=== PATIENT | female | born 1980 | race Native Hawaiian/Other Pacific Islander ===

== ENCOUNTER 2019-04-14 18:07 | Emergency (ER) | payer OTHER, MEDICAID, SELFPAY ==
[2019-04-14 18:14] VITALS: BP 136/80; PULSE 97; RESP 17; TEMP 36.8; O2SAT 98; BMI 31.0
[2019-04-14 18:57] LABS: Influenza A - CEPHEID Flu A NEGATIVE (NEGATIVE); Influenza B - CEPHEID Flu B NEGATIVE (NEGATIVE)
--- NOTE | 2019-04-14 19:36 | ED_ITS ---
HPI - URI/Sore Throat <AKBAR Goode - Last Filed: 04/14/19 19:45> General Chief Complaint: Upper Respiratory Symptoms Stated Complaint: thinks has ear infection Time Seen by Provider: 04/14/19 18:58 Source: patient and family Mode of arrival: Ambulatory Limitations: no limitations History of Present Illness HPI Narrative: The patient is a 39-year-old female nonsmoker denies pertinent medical history presents with a chief complaint ?I think I have an ear infection. She states that she has had a sore throat, slight cough, ear pressure for the past 2 days, worse yesterday. Denies any fevers nausea vomiting or diarrhea. Related Data Previous Rx's Medication Instructions Recorded amoxicillin 875 mg PO BID #20 tab 04/14/19 Allergies Allergy/AdvReac Type Severity Reaction Status Date / Time No Known Drug Allergies Allergy Verified 04/14/19 18:13 Review of Systems <AKBAR Goode - Last Filed: 04/14/19 19:45> Review of Systems Narrative: GENERAL: Denies chills, fatigue, malaise, fever, sweats. HEENT: See HPI RESPIRATORY: Denies dyspnea, cough, wheezing, hemoptysis, sputum. CARDIOVASCULAR: Denies chest pain, palpitations, orthopnea, edema, GASTROINTESTINAL: Denies nausea, vomiting, abdominal pain, diarrhea, constipation, melena. : Denies dysuria, frequency, incontinence, hematuria, urinary retention. MUSCULOSKELETAL: denies weakness, joint pain, or bony pain SKIN: Denies rash, skin lesions, or other NEUROLOGIC: Denies weakness, headache, numbness, change in speech, confusion, seizures, incoordination. PSYCHIATRIC: No concerning psychosocial issues. 12 point review of systems is negative except for those stated above Exam <AKBAR Goode - Last Filed: 04/14/19 19:45> Narrative Exam Narrative: GENERAL: This is a well-nourished, well-developed patient, in no acute distress HEAD: Atraumatic. Normocephalic. No temporal or scalp tenderness. EYES: Pupils equal round and reactive. Extraocular motions intact. No scleral icterus. No injection or drainage. ENT: Nose without bleeding, purulent drainage or septal hematoma. Throat without erythema, tonsillar hypertrophy or exudate. Uvula midline. Airway patent. Bilateral TMs pearly roche NECK: Trachea midline. No JVD or lymphadenopathy. Supple, nontender, no meningeal signs. CARDIOVASCULAR: Regular rate and rhythm without murmurs, gallops, or rubs. RESPIRATORY: Clear to auscultation. Breath sounds equal bilaterally. No wheezes, rales, or rhonchi. No cough. No increased respiratory effort. No accessory muscle use. GASTROINTESTINAL: Abdomen soft, non-tender, nondistended. No hepato- splenomegaly, or palpable masses. No guarding. EXTREMITIES: No clubbing, cyanosis, or edema. No joint tenderness, effusion, or edema noted. BACK: Nontender without deformity or crepitance. No flank tenderness. NEURO: AOx3. SKIN: No rash or erythema. Initial Vital Signs Initial Vital Signs: Vital Signs Temperature 98.3 F 04/14/19 18:14 Pulse Rate 97 H 04/14/19 18:14 Respiratory Rate 17 04/14/19 18:14 Blood Pressure 136/80 04/14/19 18:14 Pulse Oximetry 98 04/14/19 18:14 <DO Abel Zaldivar Last Filed: 04/14/19 20:40> Initial Vital Signs Initial Vital Signs: Vital Signs Temperature 98.3 F 04/14/19 18:14 Pulse Rate 97 H 04/14/19 18:14 Respiratory Rate 17 04/14/19 18:14 Blood Pressure 136/80 04/14/19 18:14 Pulse Oximetry 98 04/14/19 18:14 Course <AKBAR GoodeBC - Last Filed: 04/14/19 19:45> Orders Ordered: ED Orders 04/14/19 18:20 Influenza A & B (PCR) Stat Vital Signs Vital signs: Vital Signs - 8 hr 04/14/19 18:14 Temperature 98.3 F Pulse Rate 97 H Respiratory Rate 17 Blood Pressure 136/80 Pulse Oximetry 98 <DO Abel Zaldivar Last Filed: 04/14/19 20:40> Orders Ordered: ED Orders 04/14/19 18:20 Influenza A & B (PCR) Stat Vital Signs Vital signs: Vital Signs - 8 hr 04/14/19 18:14 Temperature 98.3 F Pulse Rate 97 H Respiratory Rate 17 Blood Pressure 136/80 Pulse Oximetry 98 MDM - URI/Sore Throat <AKBAR GoodeBC - Last Filed: 04/14/19 19:45> Lab Data Labs: Lab Results 04/14/19 Range/Units 18:20 Influenza A (RT-PCR) Flu a negative (NEGATIVE) Influenza B (RT-PCR) Flu b negative (NEGATIVE) Point of Care Testing Rapid Strep A Positive MDM Narrative Medical decision making narrative: The patient is a 39 year female who presents with a chief complaint of sore throat ear pressure and general malaise. She is hemodynamically stable, afebrile and in no acute distress. She tests negative for influenza, positive for strep. Antibiotic therapy initiated with amoxicillin. Discussed at length follow up with primary care provider, coming back to the emergency department for any acute concerns. Patient has no questions or concerns upon discharge and states understanding of return precautions as well as follow-up care. <Michael Cortez DO - Last Filed: 04/14/19 20:40> Lab Data Labs: Lab Results 04/14/19 Range/Units 18:20 Influenza A (RT-PCR) Flu a negative (NEGATIVE) Influenza B (RT-PCR) Flu b negative (NEGATIVE) Point of Care Testing Rapid Strep A Positive Discharge Plan Departure Patient Disposition: Home Clinical Impression: Strep throat Discharge Date/Time: 04/14/19 19:32 Instructions: DI for Strep Throat Activity Restrictions/Additional Instructions: Today you tested positive for strep throat. I sent a prescription of amoxicillin to [facility] in [place] Please continue [id number] measures as needed and able Please follow-up with primary care provider in the next few days Please come back to emergency department for any acute concerns such as inability to keep down fluids Prescriptions: New amoxicillin 875 mg tablet 875 mg PO BID Qty: 20 RF: 0 Stand Alone Forms: Work Release Note <Michael Cortez DO - Last Filed: 04/14/19 20:40> Sign Out Provider Sign Out Attestation: Dr Cortez Co-Sign Statement: I was available for consultation during this patient's emergency department visit. This chart is signed by myself for administrative purposes only. I did not have direct contact with this patient during this visit. They were seen independently by the APC.
== END 2019-04-14 19:32 | disposition home or self-care (01) ==
PROVIDERS: Emergency Medicine; Emergency Provider Nurse Practitioner Family
DX: J02.0 Streptococcal pharyngitis (principal)
CPT/HCPCS: 87502; 87880; 99281; 99283